=== PATIENT | female | born 1950 | race Caucasian/White ===

== ENCOUNTER 2018-02-07 18:48 | Emergency (ER) | payer MEDICARE, BC ==
--- OUTSIDE RECORDS SUMMARY | 2018-02-07 18:53 | XMS REPORT ---
:1950 External Reference #:[id number] Author Organization [employer] [facility] Address [address] [place] [address] [place] [address] Phone [phone] Care Team Providers Name Role Phone Dann Lobo MD Primary Care Physician Unavailable Payers Type Date Identification Numbers Payment Provider Subscriber Medicare Primary Policy Number: [id number] Medicare Berkley Rudd PayID: [id number] [address] [place] [address] Medigap Part B Expires: 2017 Policy Number: Medicare Berkley Rudd [id number] PayID: [id number] [address] [place] [address] Medigap Part B Effective: 2012 Policy Number: [facility] Berkley Rudd [id number] PayID: [id number] [address] [address] [place] [address] Medigap Part B Effective: 2010 Policy Number: BS [facility] Berkley Rudd [id number] Expires: 2012 PayID: [id number] [address] [address] [place] [address] Problems Date Description Provider Status Onset: 12/26/2017 Acquired genu varum Dary Andrade M.D. Active Onset: 12/26/2017 Localized, primary osteoarthritis Dary Andrade M.D. Active Onset: 04/12/2016 Paroxysmal supraventricular Adithya Parish M.D., FACC, Active tachycardia FSCAI Onset: 10/22/2014 Chest pain Simeon Lim M.D., Active FACC, FASNC Onset: 10/22/2014 Palpitations Simeon Lim M.D., Active FACC, FASNC Family History Date Family Member(s) Problem(s) Comments General Heart Disease General Diabetes General Stroke General Chronic Obstructive Pulmonary Disease (COPD) Father due to Ischemic bowel () Father Cerebrovascular Accident (CVA) Mother Heart Valve calcification Mother Hypertension Social History Type Date Description Comments Lives With Alone Occupation Retired Cigarette Use Former Cigarette Smoker 03/24-03/22 PPD for 35 years, quit in 2006 Pt denies smoking pipe, cigar, e-cigarettes, or using chewing tobacco. ETOH Use Drinks 1 Alcoholic Beverage Per Day Smoking Patient is a former smoker Recreational Drug Use Denies Drug Use Daily Caffeine Consumes on average 1 cup of regular coffee per day Exercise Type/Frequency Exercises sporadically Allergies, Adverse Reactions, Alerts Date Description Reaction Status Severity Comments 09/25/2013 Latex Urticaria active Adhesives 10/22/2014 Perfumes/Scents N/V and H/A active Moderate Pt reports a sensitivity to scents 12/06/2014 Beta Adrenergic active wheezing Blockers 09/25/2013 NKDA inactive 10/10/2014 Tylenol inactive does not take due to Hep C Medications Medication Date Status Form Strength Qnty SIG Indications Ordering Provider Bupropion HCL 06/24 Active Tablets 300mg 1 by mouth Leno ER (XL) ER 24HR every day Brannon Enrique M.D. Duloxetine HCL 09/[address] 20mg 1 by mouth Part twice a day Corrine valle M.D. Synthroid Active Tablets 137mcg 1 by mouth Unknown /0000 every day Naproxen Active Tablets 375mg One tab by Unknown /0000 mouth twice a day Desloratadine Active Tablets 5mg 1 by mouth Unknown /0000 every day Ambien Active Tablets 10mg 1 by mouth Unknown /0000 every night at bedtime Magnesium Oxide Active Tablets 400mg 1 by mouth bid Unknown -MG Supplement /0000 Hydrocodone/Tyl Active 5-325mg 1 tab by mouth Unknown enol /0000 every 6h as needed Probiotic 00 Active Capsules 1 by mouth Unknown /0000 every day Zantac 75 Active Tablets 75mg one tablet po Unknown /0000 twice a day Breo Ellipta Active Aerosol 200-25mcg take 1 inhaled Unknown /0000 /Inh daily Spiriva Active Aerosol 1.25mcg/A inhale two Unknown Respimat /0000 ct puffs by mouth every day Tylenol Active Tablets 500mg 1 tablet po Unknown /0000 bid Cardizem 12/06 Hx Tablets 60mg 180ta take 60 mg I47.1 Adithya /2014 bs twice a day Trista Parish M.D., 06/25 [facility] Metoprolol 11/18 Hx Tablets 25mg 30tab 1 by mouth 785.1 Simeon Succinate ER /2014 ER 24HR s every day Red Lim 12/20 M.DJena, [facility] Metoprolol 10/22 Hx Tablets 25mg 180ta 1 by mouth 785.1 Simeon Tartrate /2014 bs twice a day Red Lim, 11/18 M.DJena, [facility] Neurontin Hx Capsules 300mg 1 by mouth two Unknown /0000 times a day - and 2 tabs at 04/11 Tramadol HCL Hx Unknown /0000 - 09/25 Tramadol HCL Hx Powder 1 by mouth Unknown /0000 every 6 hours - as needed 09/24 Tramadol HCL Hx Tablets 50mg One tab by Unknown /0000 mouth bid - 04/11 Cyanocobalamin Hx Solution 1000mcg/M 25ml 1.0 cubic Unknown /0000 L centimeters - intramuscular 12/25 once a month /2017 Proair HFA 00 Hx Aerosol 108(90Bas 2 puffs by Unknown /0000 e) mouth every 4 - mcg/Act hours as 12/25 Flovent HFA 0000 Hx Aerosol 110mcg/Ac 2 puffs twice Unknown /0000 t daily prn - 12/25 Ranitidine HCL Hx Capsules 150mg 1 by mouth Unknown /0000 once a day - 01/31 Dulcolax Stool Hx Capsules 100mg twice daily Unknown Softener /0000 - 03/24 Probiotic Hx Capsules 1-250Bill once daily Unknown Formula /0000 ion-mg - 11/20 Vitamin D3 Hx Tablets Unknown Complete /0000 - 12/06 Bupropion HCL 00 Hx Tablets 150mg 1 by mouth Unknown ER (XL) /0000 ER 24HR every day - 06/25 Harvoni 00/ Hx Tablets 90-400mg 1 by mouth Unknown /0000 every day - 06/24 Medications Administered in Office Medication Date Status Form Strength Qnty SIG Indications Ordering Provider Inj, Administered Injection Simeon Moon Regadenoson, 015 Lim, 0.1 MG M.D., FACC, FASNC Technetium TC Administered Injection Fredy S. 99M 015 Glass, DO Tetrofosmin, FACC Per Unit Dose Up To 40 Millicuries Technetium TC Administered Injection Simeon Moon 99M 015 Lim, Tetrofosmin, M.D., FACC, Per Unit Dose FASNC Up To 40 Millicuries Celestone 3 mg Administered Injection Mahsa and 3mg 014 Nick gross M.D. Depomedrol Administered Injection Dirk Andrei, 80MG 013 M.D. Depomedrol Administered Injection Gnosticist 80MG 012 Wu Meier R.P.A.-Alex Synvisc Or Administered Injection Dirk Andrei, Synvisc-One 012 M.D. Injection 1 MG Depomedrol Administered Injection Dirk Andrei, 80MG 011 M.D. Vital Signs Date Vital Result Comment 02/01/2018 Height 62 inches 5'2" Weight 241.00 lb with shoes Heart Rate 66 /min BP Systolic Sitting 134 mmHg Lue lg cuff BP Diastolic Sitting 76 mmHg Lue lg cuff BP Systolic Standing 134 mmHg Lue lg cuff BP Diastolic Standing 80 mmHg Lue lg cuff Respiratory Rate 16 /min BMI (Body Mass Index) 44.1 kg/m2 Ejection Fraction 60-65% date 12/04/14 echo 12/26/2017 Height 62 inches 5'2" Weight 245.00 lb Heart Rate 68 /min BP Systolic 132 mmHg BP Diastolic 60 mmHg BMI (Body Mass Index) 44.8 kg/m2 06/25/2016 Height 61.5 inches 5'1.50" Weight 232.00 lb no shoes Heart Rate 72 /min BP Systolic Sitting 128 mmHg Rue lrg cuff BP Diastolic Sitting 72 mmHg Rue lrg cuff BP Systolic Standing 126 mmHg Rue lrg cuff BP Diastolic Standing 78 mmHg Rue lrg cuff Respiratory Rate 16 /min BMI (Body Mass Index) 43.1 kg/m2 Ejection Fraction 60-65% 12/04/2014-echo 04/12/2016 Height 61.5 inches 5'1.50" Weight 235.00 lb Heart Rate 70 /min 72 BP Systolic Sitting 130 mmHg right arm, large cuff BP Diastolic Sitting 80 mmHg right arm, large cuff BP Systolic Standing 126 mmHg right arm, large cuff BP Diastolic Standing 80 mmHg right arm, large cuff Respiratory Rate 16 /min BMI (Body Mass Index) 43.7 kg/m2 Ejection Fraction 60-65% 12/04/14 01/20/2015 Height 61.5 inches 5'1.50" Weight 225.00 lb w/o shoes Heart Rate 70 /min reg BP Systolic Sitting 134 mmHg Rue, lg cuff BP Diastolic Sitting 86 mmHg Rue, lg cuff BP Systolic Standing 126 mmHg Rue BP Diastolic Standing 90 mmHg Rue Respiratory Rate 18 /min BMI (Body Mass Index) 41.8 kg/m2 Ejection Fraction 60-65% as of 12/04/14 echo 12/06/2014 Height 61.5 inches 5'1.50" Weight 222.00 lb Heart Rate 80 /min BP Systolic Sitting 132 mmHg LA, reg BP Diastolic Sitting 76 mmHg LA, reg BMI (Body Mass Index) 41.3 kg/m2 Ejection Fraction 60%-65% 12/04/14 ECHO 10/22/2014 Height 61.5 inches 5'1.50" Weight 216.50 lb w/o shoes Heart Rate 74 /min reg BP Systolic 112 mmHg Lue, lg cuff BP Diastolic 66 mmHg Lue, lg cuff BP Systolic Sitting 110 mmHg Rue, lg cuff BP Diastolic Sitting 64 mmHg Rue, lg cuff BP Systolic Standing 114 mmHg Rue BP Diastolic Standing 60 mmHg Rue Respiratory Rate 18 /min BMI (Body Mass Index) 40.2 kg/m2 09/25/2013 Height 62 inches 5'2" Weight 190.00 lb Heart Rate 73 /min BP Systolic 98 mmHg BP Diastolic 54 mmHg BMI (Body Mass Index) 34.7 kg/m2 Results Test Date Test Result H/L Range Note Culture And Sensitivity 08/24/2011 M 1 <SEE NOTE> Cytology Non-Student Union Consultant 08/24/2011 Cytology Non Student Union Consultant 2 <SEE NOTE> 1 RUN DATE: 08/27/11 [facility] NMI LIVE PAGE 1 RUN TIME: 1128 Specimen Inquiry RUN USER: INTERFACE Name: BERKLEY RUDD Status: REG REF Re08/24/11 Age/Sex: 60/F Unit#: [id number] Location: [facility] : 48 SPEC #: [id number] COLUMBA: 08/24/11-1499 STATUS: COMP REQ #: [id number] RECD: 08/25/11-[address]: Mao Cardona MD SOURCE: WOUND ENTR: 08/25/11-[address]: Jaimee Sargent MD SPDESC: BREAST,RIG ORDERED: CULT SENS/GS ACT WKST: B 08/27/11 #1 Procedure Result Verified Site > CULTURE SENSITIVITY Final 08/27/11- 1127 ML FINAL: NO GROWTH DAY 2 > GRAM STAIN SMEAR Final 08/26/11- 0757 ML POLYS NONE SMEAR: FEW EPITHELIAL CELLS FEW NUCLEATED CELLS NO ORGANISMS SEEN - [facility] State Permit #[id number] [facility] [employer] [place] [id number] DEPARTMENT OF PATHOLOGY, [facility] Proxeon [place] [address] [facility] Permit #[id number] Bk Rivera M.D. Director Lopez Shanks M.D. Offensive Coordinator 2 --- RUN DATE: 08/27/11 [facility] NMI LIVE PAGE 1 RUN TIME: 849 Specimen Inquiry RUN USER: INTERFACE -- Name: BERKLEY RUDD Dwayne Status: REG REF Re08/24/11 Age/Sex: 60/F Unit#: [id number] Location: [facility] : 48 -- Specimen: [id number] Spec Date:08/24/11-[address]: Mao savage MD Spec Type: CYTOLOGY Received:08/26/11-1012 Copies to: Jaimee Sargent MD SOURCE FINE NEEDLE ASPIRATION Right breast PATIENT INFORMATION ACTUAL COLLECTION DATE: 08/24/11 PATIENT HISTORY: right breast lesion GROSS DESCRIPTION Needle rinse in CytoLyt solution( light serrano colored) for thin layer non-maintenance planning clerk test and cell block. DIAGNOSIS Breast, right, fine needle aspiration: Inflammatory cells and macrophages. No ductal epithelium seen. COMMENT Correlation with clinical and imaging studies with continued follow-up and evaluation are warranted. A cell block was prepared in the evaluation of this specimen. Smears and cell block reveal similar findings. Initial evaluation performed by Neeraj MOBLEY([facility]) 08/26/11 Final Interpretation electronically signed by: LOPEZ SHANKS 08/27/11 0850 -- -- DEPARTMENT OF PATHOLOGY, [address] [place] [address] [facility] Permit #[id number] Bk Rivera M.D. Director Lopez Shanks M.D. Photogeologist Dir alejandra -- Procedures Date CPT Code Description Status 02/01/2018 19091 EKG Tracing & Interpretation Completed 04/12/2016 72321 EKG Tracing & Interpretation Completed 12/05/2014 51990 Holter Monitoring 24 HR New Completed 12/04/2014 05083 ECHO Transthoracic, Real-Time 2D With Doppler And Color Completed Flow 12/04/2014 92837 ECHO Transthoracic, Real-Time 2D With Doppler And Color Completed Flow 12/02/2014 35402 Stress Test Completed 12/02/2014 76223 Myocardial Perfusion Imaging Tomographic (Spect) Completed Multiple Studies 12/02/2014 61326 Myocardial Perfusion Imaging Tomographic (Spect) Completed Multiple Studies 10/22/2014 28200 EKG Tracing & Interpretation Completed 09/25/2013 57356 Inject Tendon Sheath Or Ligament Aponeurosis Eg Plantar Completed Fascia 09/25/2013 22270 Rad Exam; Hand Comp Completed 09/27/2012 78591 Xray Knee 3 Views Completed 09/27/2012 81388 Rad Exam; Knee, Ap&L Completed 09/27/2012 54525 Inject/Drain Joint/Bursa Major W/O US Completed 03/27/2012 23738 Polysomnography Sleep Staging 4+ Parameters Completed 10/06/201198487 Inject/Drain Joint/Bursa Major W/O US Completed 05/03/201155362 Inject/Drain Joint/Bursa Major W/O US Completed 03/01/2011 38869 Xray Knee 3 Views Completed 03/01/2011 50684 Rad Exam; Knee, Ap&L Completed 03/01/201130840 Inject/Drain Joint/Bursa Major W/O US Completed Encounters Type Date Location Provider CPT E/M Dx Office Visit 12/26/2017 [facility] Dary Andrade M.D. 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 786.50 Office Visit 09/25/2013 9:00a [facility] Mahsa Lopez, 91839 727.04 Of [facility] Valerio 715.94 Office Visit 09/27/2012 9:30a [facility] Ismael Forbes M.D. 33300 716.96 C.M.A. 719.46 715.96 Office Visit 04/14/2012 3:03p Sanna Isidro, 35340 327.23 Disorder Center MMarita Office Visit 02/25/2012 9:12a [facility] Daniel Isidro, 50370 786.09 Disorder Center MMarita 307.42 Office Visit 10/06/2011 8:15a [facility] [place] 57035 716.96 Of C.MBoni Garcia 719.46 715.96 Office Visit 05/03/2011 11:00a [facility] Ismael Forbes M.D. 18089 715.96 C.M.A. 716.96 716.96 715.96 Office Visit 04/21/2011 2:00p [facility] Ismael Forbes M.D. 48902 716.96 C.M.A. Office Visit 03/01/2011 10:15a [facility] Ismael Forbes M.D. 45697 716.96 C.M.A. 715.96 Plan of Care Future Appointment(s):02/28/2018 11:30 am - Dary Andrade M.D. at [facility] [place]02/15/2018 9:30 am - Dary Andrade M.D. at [facility]02/01/2018 - [facility] Enrique M.D.I47.1 Supraventricular tachycardiaFollow up:As yfhxwkC96.810 Encounter for preprocedural cardiovascular examination
[2018-02-07 19:03] VITALS: BP 135/61
[2018-02-07] MEDS ORDERED: predniSONE TAB* 20 MG PO ONE (19:18)
--- NOTE | 2018-02-07 19:18 | UC ---
Respiratory Complaint HPI - HPI Summary HPI Summary: The patient is a 67-year-old female with a one-week history of cough. She has point tenderness along the right upper sternal border when she coughs. Other than that one area pain she denies any chest pain. She denies shortness of breath. She has had a mild sore throat and swollen anterior cervical nodes. She denies any fever or chills. - History of Current Complaint Chief Complaint: UCRespiratory Stated Complaint: COUGH Time Seen by Provider: 02/07/18 19:05 Hx Obtained From: Patient Onset/Duration: Gradual Onset, Lasting Days Timing: Constant Severity Initially: Mild Severity Currently: Moderate Pain Intensity: 4 Pain Scale Used: 0-10 Numeric Character: Cough: Nonproductive Aggravating Factors: Deep Breaths Alleviating Factors: Bronchodilator Associated Signs And Symptoms: Positive: Nasal Congestion - Allergies/Home Medications Allergies/Adverse Reactions: Allergies Allergy/AdvReac Type Severity Reaction Status Date / Time Adhesive Tape AdvReac See Comment Verified 02/07/18 19:04 Chemicals AdvReac See Comment Uncoded 02/07/18 19:04 Home Medications: Home Medications Fluticasone/Vilanterol [Breo Ellipta 200-25 Mcg INH] 02/07/18 [History Confirmed 02/07/18] Tiotropium CAP.INH* [Spiriva CAP.INH*] 2 cap.inh INH DAILY 02/07/18 [History Confirmed 02/07/18] PMH/Surg Hx/FS Hx/Imm Hx Previously Healthy: Yes Endocrine History: Hypothyroidism Respiratory History: Asthma, Bronchitis GI/ History: Gastroesophageal Reflux Psychological History: Depression - Surgical History Surgical History: Yes Surgery Procedure, Year, and Place: 1969 - . 1969- partial thyroidectomy. 1980 C- Section. 1982 - lumpectomy (benign). 07/[address] [facility] - lap cholecystectomy. 2012 L total knee replacement. breast reduction 02/2010. 03/[address] [facility] - esophageal & duodenal bioposy - Social History Alcohol Use: None Alcohol Amount: 2-3 drinks a week Substance Use Type: None Substance Use Comment - Amount & Last Used: ambien and tramadol Smoking Status (MU): Former Smoker Type: Cigarettes Have You Smoked in the Last Year: No When Did the Patient Quit Smoking/Using Tobacco: 2008 - Immunization History Most Recent Influenza Vaccination: Nov 2012 Most Recent Tetanus Shot: up to date per patient Most Recent Pneumonia Vaccination: none Review of Systems All Other Systems Reviewed And Are Negative: Yes Constitutional: Positive: Fatigue Skin: Positive: Negative Eyes: Positive: Negative ENT: Positive: Sore Throat Respiratory: Positive: Cough Cardiovascular: Positive: Chest Pain Gastrointestinal: Positive: Negative Genitourinary: Positive: Negative Motor: Positive: Negative Neurovascular: Positive: Negative Musculoskeletal: Positive: Negative Neurological: Positive: Negative Psychological: Positive: Negative Physical Exam Triage Information Reviewed: Yes Appearance: Well-Appearing, No Pain Distress, Well-Nourished Vital Signs: Initial Vital Signs Temp 98.2 F 02/07/18 18:57 Pulse 70 02/07/18 18:57 Resp 18 02/07/18 18:57 BP 135/61 02/07/18 18:57 Pulse Ox 94 02/07/18 18:57 Vital Signs Reviewed: Yes Eyes: Positive: Conjunctiva Clear ENT: Positive: Hearing grossly normal, Uvula midline. Negative: Nasal congestion, Nasal drainage, Trismus, Muffled voice, Hoarse voice, Dental tenderness, Sinus tenderness Neck: Positive: Supple, Nontender, Enlarged Nodes @ - small tender ant cerv nodes Respiratory: Positive: Lungs clear, Normal breath sounds, No respiratory distress. Negative: Chest non-tender Cardiovascular: Positive: RRR. Negative: Tachycardia, Bradycardia Musculoskeletal: Positive: ROM Intact, No Edema Neurological: Positive: Alert Psychological Exam: Normal UC Diagnostic Evaluation - Laboratory O2 Sat by Pulse Oximetry: 94 - low normal/not hypoxic Respiratory Course/Dx - Differential Dx/Diagnosis Provider Diagnoses: Acute bronchitis. chest wall pain Discharge - Sign-Out/Discharge Documenting (check all that apply): Patient Departure All imaging exams completed and their final reports reviewed: No Studies - Discharge Plan Condition: Stable Disposition: HOME Prescriptions: predniSONE [Deltasone 20 MG TAB] 40 mg PO DAILY #8 tab Patient Education Materials: Acute Bronchitis (ED) Referrals: Dann Lobo MD [Primary Care Provider] - 1 Week (if not completely better) Additional Instructions: continue to use your inhalers as directed plain mucinex or robitussin recheck for new or worsening symptoms - Billing Disposition and Condition Condition: STABLE Disposition: Home Images Front/Back of Body, Lg ([place]): [address] [place] [address]
== END 2018-02-07 19:33 | disposition home or self-care (01) ==
LOC: UCEAST 18:48
DX: J20.9 Acute bronchitis, unspecified (principal); R07.89 Other chest pain; J45.909 Unspecified asthma, uncomplicated; Z91.048 Other nonmedicinal substance allergy status; Z87.891 Personal history of nicotine dependence
CPT/HCPCS: 99212; G0463; J7512

== ENCOUNTER 2018-02-28 08:16 | Inpatient (IN) | payer MEDICARE, BC ==
--- NOTE | 2018-02-15 22:29 | HP ---
HISTORY AND PHYSICAL: DATE OF ADMISSION/SURGERY: 02/28/18 DATE OF OFFICE VISIT: 02/15/18 SURGEON: Dary Andrade MD * (DICTATED BY BROOK COLEMAN) PRIMARY CARE PHYSICIAN: Dann Lobo MD PROCEDURE: Right total knee arthroplasty. CHIEF COMPLAINT: Right knee pain. HISTORY OF PRESENT ILLNESS: Ms. Rudd is a 67-year-old female with end-stage osteoarthritis of the right knee. She has failed conservative treatment and elected to proceed with a right total knee arthroplasty. PAST MEDICAL HISTORY: 1. Hypothyroidism. 2. GERD. 3. Asthma. 4. High cholesterol. 5. Depression. 6. Anxiety. 7. Hepatitis C. 8. Sleep apnea. PAST SURGICAL HISTORY: 1. Partial thyroidectomy. 2. . 3. Cholecystectomy. 4. Breast reduction. 5. Left total knee arthroplasty. CURRENT MEDICATIONS: 1. Wellbutrin 300 mg daily. 2. Duloxetine 20 mg twice a day. 3. Levothyroxine 137 mcg daily. 4. Naproxen 375 mg twice a day. 5. Desloratadine 5 mg daily. 6. Ambien 10 mg q.h.s. 7. Ranitidine 150 mg daily. 8. Magnesium oxide twice a day. 9. Zantac twice a day. 10. Breo Ellipta inhaler. 11. Spiriva. 12. Tylenol as needed. ALLERGIES: To ADHESIVES. FAMILY HISTORY: Coronary artery disease, COPD, and stroke. SOCIAL HISTORY: She is a 67-year-old female. She lives alone. She does not smoke or use drugs. Uses occasional alcohol. REVIEW OF SYSTEMS: A complete 14-point review of systems was reviewed with the patient. It is positive for GERD, hypothyroidism, and hepatitis C infection, which was treated approximately 1 year ago. She denies history of DVT, PE, HIV , MRSA, or anesthesia problems. PHYSICAL EXAMINATION GENERAL: She is well developed, well nourished, in no acute distress. VITAL SIGNS: She stands 62 inches tall, weighs 245 pounds. Her blood pressure 124/76 and her heart rate is 68. HEENT: Normocephalic, atraumatic. NECK: Supple. No palpable lymph nodes. PULMONARY: The lungs are clear to auscultation bilaterally. CARDIO: Regular rate and rhythm. Strong S1, S2. ABDOMEN: Soft, nontender, nondistended. NEUROLOGICAL: She is alert and oriented x3. MUSCULOSKELETAL: Right lower extremity, the skin is intact. There are no open wounds or abrasions. She has a moderate joint effusion. She has some tenderness over the medial and lateral joint line. Range of motion is 10 to 120 degrees of flexion. She has 2+ dorsalis pedis pulse. Intact sensation. Her lower extremity muscle group strengths are intact at 5/5. ASSESSMENT AND PLAN: Ms. Rudd is a 67-year-old female with end-stage osteoarthritis of the right knee. She has failed conservative treatment and elected to proceed with a right total knee arthroplasty, which is scheduled for 02/28/[address] Andrade discussed the risks and benefits of the surgery at today's visit and all of her questions were answered. She will follow with Dr. Andrade 2 weeks after the surgery. BROOK COLEMAN [id number]/[facility] #: [id number] [facility]
[~2018-02-28 08:16] MED LIST: Buffered Lidocaine 0.9% SYRIN* 5 ML/SYR SYRINGE INTRADERM ONE; Lactated Ringers 1000 ML Bag* 1,000 ML IV SCH; Tranexamic Acid 1,000 MG in NS 0.9% 50 ML* (outpatient use) IV SCH
--- OUTSIDE RECORDS SUMMARY | 2018-02-28 08:21 | XMS REPORT | Continuity of Care Document ---
:1950 External Reference #:[id number] Author Name Frida Garcia Care Team Providers Name Role Phone Dann Lobo MD Primary Care Physician Unavailable Payers Type Date Identification Numbers Payment Provider Subscriber Policy Number: [id number] Medicare Berkley Rudd PayID: [id number] [address] [place] [address] Expires: 2017 Policy Number: [id number] Medicare Berkley Rudd PayID: [id number] [address] [place] [address] Effective: 2012 Policy Number: [id number] BS [employer]ets Berkley Rudd PayID: [id number] [address] [address] [place] [address] Effective: 2010 Policy Number: [id number] BS Of [place] Berkley Rudd Expires: 2012 PayID: [id number] [address] [address] [place] [address] Advance Directives Description No Information Available Problems Date Description Provider Status Onset: 12/26/2017 [...] Hypertension Social History Type Date Description Comments Sex Unknown Lives With Alone Occupation Retired Tobacco Use Start: Unknown End: Former Cigarette Smoker 03/24-03/22 PPD for 35 Unknown years, quit in 2006 Pt denies smoking pipe, cigar, e-cigarettes, or using chewing tobacco. Smoking Status Reviewed: 02/15/18 Former Cigarette Smoker 03/24-03/22 PPD for 35 years, quit in 2006 Pt denies smoking pipe, cigar, e-cigarettes, or using chewing tobacco. ETOH Use Drinks 1 Alcoholic Beverage Per Day Tobacco Use Start: Unknown End: Patient is a former Unknown smoker Recreational Drug Use Denies Drug Use Exercise Type/Frequency Exercises sporadically Allergies, Adverse Reactions, Alerts Date Description Reaction Status Severity Comments 09/25/2013 Latex Urticaria Active Adhesives 10/22/2014 Perfumes/Scents N/V and H/A Active Moderate Pt reports a sensitivity to scents 12/06/2014 Beta Adrenergic Active wheezing Blockers 09/25/2013 NKDA Inactive 10/10/2014 Tylenol Inactive does not take due to Hep C Medications Medication Date Status Form Strength Qnty SIG Indications Ordering Provider Bupropion HCL 06/24 Active Tablets 300mg 1 by mouth [place]eno ER (XL) /2016 ER 24HR every day Brannon Enrique M.D. [...] by mouth bid Unknown -MG Supplement /0000 Probiotic Active Capsules 1 by mouth Unknown /0000 [...] twice a day Trista Parish M.D., 06/25 [facility], [facility] Metoprolol 11/18 Hx Tablets 25mg 30tab 1 by mouth 785.1 Simeon Succinate ER /2014 ER 24HR s every day Red Lim 12/20 Teod[place], [facility], [facility] Metoprolol 10/22 Hx Tablets 25mg 180ta 1 by mouth 785.1 Simeon Tartrate /2014 bs twice a day Red Lim, 11/18 Teodoro, [facility], [facility] Neurontin Hx Capsules 300mg 1 by [...] - mcg/Act hours as 12/25 Flovent HFA 00 Hx Aerosol 110mcg/Ac 2 puffs twice Unknown /0000 t daily prn - 12/25 Ranitidine HCL Hx Capsules 150mg 1 by mouth Unknown /0000 once a day - 01/31 Dulcolax Stool 00 Hx Capsules 100mg twice daily Unknown Softener /0000 - 03/24 Probiotic 0000 Hx Capsules 1-250Bill once daily Unknown Formula /0000 ion-mg - 11/20 Vitamin D3 00/00 Hx Tablets Unknown Complete /0000 - 12/06 Hydrocodone/Tyl 00 Hx 5-325mg 1 tab by mouth Unknown enol /0000 every 6h as - needed 02/14 Bupropion HCL Hx Tablets 150mg 1 by mouth Unknown ER (XL) /0000 ER 24HR every day - 06/25 Harvoni 00 Hx Tablets 90-400mg 1 by mouth Unknown /0000 every day - 06/24 Medications Administered in Office Medication Date Status Form Strength Qnty SIG Indications Ordering Provider Inj, Administered Injection Simeon Red Regadenoson, 015 Lim, 0.1 MG M.D., FACC, FASNC Technetium TC Administered Injection Fredy S. 99M 015 Glass, DO Tetrofosmin, FACC Per Unit Dose Up To 40 Millicuries Technetium TC Administered Injection Simeon Moon 99M 015 Lim, Tetrofosmin, M.D., FACC, Per Unit Dose FASNC Up To 40 Millicuries Celestone 3 mg Administered Injection Mahsa and 3mg 014 Nick gSage. Depomedrol Administered Injection Dirk Andrei, 80MG 013 M.D. Depomedrol Administered Injection Orthodoxy 80MG 012 H. Armando Meier.P.A.-C Synvisc Or Administered Injection Dirk Andrei, Synvisc-One 012 M.D. Injection 1 MG Depomedrol Administered Injection Dirk Andrei, 80MG 011 M.D. Immunizations Description No Information Available Vital Signs Date Vital Result Comment 02/15/2018 9:30am Height 62 inches 5'2" Weight 237.00 lb BP Systolic 124 mmHg BP Diastolic 76 mmHg Respiratory Rate 16 /min Pain Level 5 BMI (Body Mass Index) 43.3 kg/m2 02/01/2018 2:53pm Height 62 inches 5'2" Weight 241.00 lb with shoes Heart Rate 66 /min BP Systolic Sitting 134 mmHg Lue lg cuff BP Diastolic Sitting 76 mmHg Lue lg cuff BP Systolic Standing 134 mmHg Lue lg cuff BP Diastolic Standing 80 mmHg Lue lg cuff Respiratory Rate 16 /min BMI (Body Mass Index) 44.1 kg/m2 Ejection Fraction 60-65% date 12/04/14 echo 12/26/2017 3:33pm Height 62 inches 5'2" Weight 245.00 lb Heart Rate 68 /min BP Systolic 132 mmHg BP Diastolic 60 mmHg BMI (Body Mass Index) 44.8 kg/m2 06/25/2016 3:15pm Height 61.5 inches 5'1.50" Weight 232.00 lb no shoes Heart Rate 72 /min BP Systolic Sitting 128 mmHg Rue lrg cuff BP Diastolic Sitting 72 mmHg Rue lrg cuff BP Systolic Standing 126 mmHg Rue lrg cuff BP Diastolic Standing 78 mmHg Rue lrg cuff Respiratory Rate 16 /min BMI (Body Mass Index) 43.1 kg/m2 Ejection Fraction 60-65% 12/04/2014-echo 04/12/2016 2:47pm Height 61.5 inches 5'1.50" Weight 235.00 lb Heart Rate 70 /min 72 BP Systolic Sitting 130 mmHg right arm, large cuff BP Diastolic Sitting 80 mmHg right arm, large cuff BP Systolic Standing 126 mmHg right arm, large cuff BP Diastolic Standing 80 mmHg right arm, large cuff Respiratory Rate 16 /min BMI (Body Mass Index) 43.7 kg/m2 Ejection Fraction 60-65% 12/04/14 01/20/2015 10:33am Height 61.5 inches 5'1.50" Weight 225.00 lb w/o shoes Heart Rate 70 /min reg BP Systolic Sitting 134 mmHg Rue, lg cuff BP Diastolic Sitting 86 mmHg Rue, lg cuff BP Systolic Standing 126 mmHg Rue BP Diastolic Standing 90 mmHg Rue Respiratory Rate 18 /min BMI (Body Mass Index) 41.8 kg/m2 Ejection Fraction 60-65% as of 12/04/14 echo 12/06/2014 11:40am Height 61.5 inches 5'1.50" Weight 222.00 lb Heart Rate 80 /min BP Systolic Sitting 132 mmHg LA, reg BP Diastolic Sitting 76 mmHg LA, reg BMI (Body Mass Index) 41.3 kg/m2 Ejection Fraction 60%-65% 12/04/14 ECHO 10/22/2014 1:42pm Height 61.5 inches 5'1.50" Weight 216.50 lb [...] BMI (Body Mass Index) 40.2 kg/m2 09/25/2013 10:43am Height 62 inches 5'2" Weight 190.00 lb Heart Rate 73 /min BP Systolic 98 mmHg BP Diastolic 54 mmHg BMI (Body Mass Index) 34.7 kg/m2 Results Test Date Facility Test Result H/L Range Note Culture And 08/24/2011 [facility] M [address] ---- <[place] [address] NOTE> [phone] Cytology Non-Sexton Helper 08/24/2011 [facility] Cytology Non - [address] [place] ---- <[place] [address] NOTE> [phone] RUN DATE: 08/27/11 [facility] NMI LIVE PAGE 1 RUN TIME: 1128 Specimen Inquiry RUN USER: INTERFACE Name: RAJNI RUDDKennedy Rice Status: REG REF Re08/24/11 Age/Sex: 60/F Unit#: [id number] Location: [facility] : 48 SPEC #: [id number] [place]: 08/24/11 STATUS: AIDAN REQ #: [id number] RECD: 08/25/11-1529 [facility] DR: Mao Cardona MD SOURCE: WOUND ENTR: 08/25/[address]: Jaimee Sargent MD SPDESC: BREAST,RIG ORDERED: CULT SENS/GS ACT WKST: B 08/27/11 #1 Procedure Result Verified Site > CULTURE SENSITIVITY Final 08/27/11- 1127 ML FINAL: NO GROWTH DAY 2 > GRAM STAIN SMEAR Final 08/26/11- 0757 ML POLYS NONE SMEAR: FEW EPITHELIAL CELLS FEW NUCLEATED CELLS NO ORGANISMS SEEN ML - [facility] State Permit #[id number] [address] [place] [address] DEPARTMENT OF PATHOLOGY, [address] [place] [address] [facility] Permit #[id number] Teodoro Crowley M.D. [place] Carpenter 2 --- RUN DATE: 08/27/11 [facility] NMI LIVE PAGE 1 RUN TIME: 0850 Specimen Inquiry RUN USER: INTERFACE -- Name: BERKLEY RUDD Accreece#: [id number] Status: REG REF Re08/24/11 Age/Sex: 60/F Unit#: [id number] Location: [facility]. : 48 -- Specimen: [id number] [id number] Spec Date:08/24/11-[address]: Mao savage MD Spec Type: CYTOLOGY Received:08/26/11-1012 Copies to: Jaimee Sargent MD SOURCE FINE NEEDLE ASPIRATION Right breast PATIENT INFORMATION ACTUAL COLLECTION DATE: 08/24/11 PATIENT HISTORY: right breast lesion GROSS DESCRIPTION Needle rinse in CytoLyt solution( light serrano colored) for thin layer non-ob/gyn nurse test and cell block. DIAGNOSIS Breast, right, fine needle aspiration: Inflammatory cells and macrophages. No ductal epithelium seen. COMMENT Correlation with clinical and imaging studies with continued follow-up and evaluation are warranted. A cell block was prepared in the evaluation of this specimen. Smears and cell block reveal similar findings. Initial evaluation performed by Neeraj MOBLEY([facility]) 08/26/11 Final Interpretation electronically signed by: LOPEZ SHANKS 08/27/11 0850 -- -- DEPARTMENT OF PATHOLOGY, [address] [place] [address], [place] [address] [facility] Permit #[id number] Bk Rivera M.D. Director Lopez Shanks M.D. Trading Manager Dir alejandra -- Procedures Date Code Description Status 02/01/2018 53905 EKG Tracing & Interpretation Completed 04/12/2016 59864 EKG Tracing & Interpretation Completed 12/05/2014 79426 Holter Monitoring 24 HR New Completed 12/04/2014 97760 ECHO Transthoracic, Real-Time 2D With Doppler And Color Completed Flow 12/04/2014 43267 ECHO Transthoracic, Real-Time 2D With Doppler And Color Completed Flow 12/02/2014 01516 Stress Test Completed 12/02/2014 54488 Myocardial Perfusion Imaging Tomographic (Spect) Multiple Completed Studies 12/02/2014 90777 Myocardial Perfusion Imaging Tomographic (Spect) Multiple Completed Studies 10/22/2014 24802 EKG Tracing & Interpretation Completed 09/25/2013 51718 Inject Tendon Sheath Or Ligament Aponeurosis Eg Plantar Completed Fascia 09/25/2013 93137 Rad Exam; Hand Comp Completed 09/27/2012 67909 Xray Knee 3 Views Completed 09/27/2012 47259 Rad Exam; Knee, Ap&L Completed 09/27/201216478 Inject/Drain Joint/Bursa Major W/O US Completed 03/27/2012 96281 Polysomnography Sleep Staging 4+ Parameters Completed 10/06/201105414 Inject/Drain Joint/Bursa Major W/O US Completed 05/03/2011 Inject/Drain Joint/Bursa Major W/O US Completed 03/01/2011 22855 Xray Knee 3 Views Completed 03/01/2011 49997 Rad Exam; Knee, Ap&L Completed 03/01/2011 Inject/Drain Joint/Bursa Major W/O US Completed Encounters Type Date Location Provider Dx Diagnosis Office Visit 02/01/2018 [facility] [place] I47.1 Supraventricular 2:45p Of Goyo Enrique M.D. tachycardia Z01.810 Encounter for preprocedural cardiovascular examination M17.11 Unilateral primary osteoarthritis, right knee Office Visit 12/26/2017 3:00p [facility] Dary Andrade, M25.561 Pain in right Of C.MScar Valerio knee M25.461 Effusion, right knee M17.11 Unilateral primary osteoarthritis, right knee M21.161 Varus deformity, not elsewhere classified, right knee Office Visit 06/25/2016 [place] I47.1 Supraventricular 3:30p Cardiology Of [place] Enrique tachycardia Content Engineer R00.2 Palpitations Office Visit 04/12/2016 [place] I47.1 Supraventricular 3:00p Cardiology Of MADELAINE Valerio, tachycardia Content Engineer AT [facility] Office Visit 01/20/2015 [place] R00.2 Palpitations 10:45a Cardiology Of [place] Lim, Content Engineer FACC, FASNC Office Visit 12/06/2014 [place] Simeon Moon 785.1 Palpitations 11:30a Cardiology [place] Lim, FACC, FASNC Office Visit 10/22/2014 [place] 785.1 Palpitations 2:00p Cardiology Reed Lim M.D., [facility] FACC, FASNC 786.50 Pain Chest Unspec Office Visit 09/25/2013 Orthopedic Mahsa 727.04 Tenosynovitis 9:00a Services Of [place] Lopez Radial Styloid [facility] 715.94 Osteoarthrosis Unspec Genlzd Or Localized Hand Office Visit 09/27/2012 9:30a Orthopedic Ismael Forbes 716.96 Arthropathy Unspec Services Of [facility] Lower Leg [facility] 719.46 Pain Joint Lower Leg 715.96 Osteoarthrosis Unspec Genlzd Or Localized Lower Leg Office Visit 04/14/2012 3:03p Sanna Sanchez 327.23 Obstructive Sleep Disorder [facility] Office Visit 02/25/2012 9:12a Sanna Sleep Daniel 786.09 Dyspnea & Disorder [facility] Abnormalities Other 307.42 Sleep Disorder Persistent Initiating Or Maintaining Sleep Office Visit 10/06/2011 Orthopedic Oz [place] 716.96 Arthropathy 8:15a Services Of [place] Unspec Lower Leg C.M.AJena Plata 719.46 Pain Joint Lower Leg 715.96 Osteoarthrosis Unspec Genlzd Or Localized Lower Leg Office Visit 05/03/2011 11:00a Orthopedic Ismael Forbes 715.96 Osteoarthrosis Services Of [place] Unspec Genlzd Or [facility]. Localized Lower Leg 716.96 Arthropathy Unspec Lower Leg 716.96 Arthropathy Unspec Lower Leg 715.96 Osteoarthrosis Unspec Genlzd Or Localized Lower Leg Office Visit 04/21/2011 2:00p Orthopedic Ismael Forbes 716.96 Arthropathy Unspec Services Of [facility] Lower Leg [facility] Office Visit 03/01/2011 10:15a Orthopedic Ismael Forbes 716.96 Arthropathy Unspec Services Of [facility] Lower Leg [facility]. 715.96 Osteoarthrosis Unspec Genlzd Or Localized Lower Leg Plan of Treatment Future Appointment(s):02/28/2018 11:30 am - David Pineda PA-C at [facility]02/28/2018 11:30 am - BROOK Teague at [facility]02/28/2018 11:30 am - Dary Andrade M.D. at [facility]02/15/2018 - Dary Andrade M.D.M25.561 Pain in right kneeFollow up:Follow up: 2 weeks after uvxlrodJ19.461 Effusion, right kneeM17.11 Unilateral primary osteoarthritis, right kneeM21.161 Varus deformity , not elsewhere classified, right knee
[2018-02-28] MEDS ORDERED: ceFAZolin 2 GM PREMIX in ORs 2 GM/50 ML BAG IVPB ONE (08:57)
[2018-02-28] MEDS ORDERED: Midazolam* 1 MG/ML 5 ML VIAL (5 MG) ONE (10:21)
[2018-02-28] MEDS ORDERED: fentaNYL* 50 MCG/ML 2 ML VIAL (100 MCG VIAL) ONE ×2 (10:21→14:11)
[2018-02-28] MEDS ORDERED: Bupivacaine 0.5% SDV PF* 30ML VIAL ONE (10:50)
[2018-02-28] MEDS ORDERED: ROPIVACAINE 5 MG/ML 30 ML BTL (0.5%) ONE (10:55)
[2018-02-28] MEDS ORDERED: Bupivacaine 0.5% PF 10 ML VIAL INJ ONE (11:19)
[2018-02-28] MEDS ORDERED: Propofol* 10 MG/ML 20 ML BTL ONE ×2 (11:54)
[2018-02-28] MEDS ORDERED: Ondansetron INJ* 2 MG/ML VIAL ONE (11:54)
[2018-02-28] MEDS ORDERED: Phenylephrine INJ* 10 MG/ML 1 ML VIAL (10 MG) ONE (11:54)
[2018-02-28] MEDS ORDERED: Ibuprofen TAB* 600 MG PO PRN (12:54)
[2018-02-28] MEDS ORDERED: Acetaminophen TAB* 325 MG PO PRN (12:54)
[2018-02-28] MEDS ORDERED: Naloxone* 0.4 MG/ML 1 ML VIAL IV PRN (12:54)
[2018-02-28] MEDS ORDERED: Ondansetron TAB* 4 MG PO PRN (14:04)
[2018-02-28] MEDS ORDERED: Cyclobenzaprine TAB* 10 MG PO PRN (14:04)
[2018-02-28] MEDS ORDERED: diPHENhydraMINE IV* 50 MG/ML 1 ml VIAL (BENADRYL) IV PRN (14:04)
[2018-02-28] MEDS ORDERED: Polyethylene Glycol 3350* 17 GM PACKET PO PRN (14:04)
[2018-02-28] MEDS ORDERED: Ondansetron INJ* 2 MG/ML VIAL IV PRN (14:04)
[2018-02-28] MEDS ORDERED: Magnesium Hydroxide LIQ* 30 ML UDC PO PRN (14:04)
[2018-02-28] MEDS ORDERED: Bisacodyl SUPP* 10 MG SUPP PR PRN (14:04)
[2018-02-28] MEDS ORDERED: oxyCODONE/Acetamin 5/325 MG* TAB PO PRN (14:04)
[2018-02-28] MEDS: fentaNYL* 50 MCG/ML 2 ML VIAL (100 MCG VIAL) IV PRN ×4 (14:12→14:54)
[2018-02-28] MEDS ORDERED: Albuterol HFA INHALER* 8 gm MDI INH PRN (14:12)
--- NOTE | 2018-02-28 15:21 | PN ---
Progress Note - Progress Note Date of Service: 02/28/18 Note: resting comfortably in recovery room. pain well controlled. dressing c/d/i. able to dorsi flex/plantar flex, 2+DP pulse and intact sensation
[2018-02-28] MEDS: HYDROmorphone INJ1* 1 MG/ML SYRINGE IV PRN ×3 (15:33→15:55)
[2018-02-28] MEDS ORDERED: HYDROmorphone INJ1* 1 MG/ML SYRINGE ONE (15:33)
[2018-02-28] MEDS ORDERED: oxyCODONE/Acetamin 5/325 MG* TAB ONE (15:51)
[2018-02-28] MEDS: oxyCODONE/Acetamin 5/325 MG* TAB PO PRN ×3 (15:52→20:06)
[2018-02-28] MEDS: Lactated Ringers 1000 ML Bag* 1,000 ML IV SCH (16:36)
[2018-02-28] MEDS ORDERED: oxyCODONE TAB* 5 MG TAB ONE (17:29)
[2018-02-28] MEDS: Acetaminophen TAB* 325 MG PO SCH ×2 (18:15→23:50)
[2018-02-28] MEDS: ceFAZolin 1 GM in Dextrose (*) 1 GM/50 ML BAG IVPB SCH (20:03)
[2018-02-28] MEDS: Docusate CAP* 100 MG PO SCH (20:07)
[2018-02-28] MEDS: DULoxetine DR CAP* 20 MG CAP.DR PO SCH (20:07)
[2018-02-28] MEDS: Famotidine TAB* 20 MG PO SCH (20:07)
[2018-02-28] MEDS: Magnesium Hydroxide LIQ* 30 ML UDC PO SCH (20:08)
[2018-02-28] MEDS: traMADol TAB* 50 MG PO PRN (21:52)
[2018-02-28] MEDS: oxyCODONE TAB* 5 MG TAB PO PRN (21:52)
[2018-02-28] MEDS: Morphine VIAL* 4 MG/ML VIAL (1 ml vial) IV PRN (23:51)
[2018-03-01] MEDS: oxyCODONE/Acetamin 5/325 MG* TAB PO PRN ×5 (00:18→20:49)
--- NOTE | 2018-03-01 01:59 | OP ---
DATE OF OPERATION: 02/28/18 - ROOM #348 DATE OF : 46 ATTENDING SURGEON: Dary Andrade MD PLASTIC MOULD MAKER: BROOK Oconnell. Ms. Bradley did help throughout the procedure with preparation of the leg, wound retraction, manipulation of the knee, and wound closure. ANESTHESIOLOGIST: Dr. Lancaster. ANESTHESIA: Spinal. PRE-OP DIAGNOSIS: Severe end-stage degenerative osteoarthritis of the right knee joint. POST-OP DIAGNOSIS: Severe end-stage degenerative osteoarthritis of the right knee joint. OPERATIVE PROCEDURE: Right total knee arthroplasty. TOURNIQUET TIME: 53 minutes. COMPLICATIONS: None. SPECIMEN: Bone and cartilage from the right knee joint sent to Pathology. HARDWARE USED: This is cemented Hernandez and Nephew total knee arthroplasty hardware. Two packages of Simplex bone cement. For the femur, a right Legion posterior stabilized 5 narrow femoral component. For the tibia, a size 3 Dulce II right tibial base plate. For the insert, a 9-mm posterior stabilized insert, size 3-4. For the patella, a 32-mm 3-peg all poly patella with 7.5 thickness. BRIEF HISTORY/INDICATION: Ms. Rudd is a 67-year-old female with years of increasingly severe right knee pain. She failed conservative treatment with antiinflammatories, pain medication, intraarticular injections, and physical therapy. Due to continued pain and decreased quality of life, she elected to undergo a right total knee arthroplasty. Radiographs showed end-stage arthritis. Informed consent was obtained from the patient. She understood the risks of surgery included but were not limited to bleeding, infection, damage to nearby structures, continued pain, need for further surgery, intraoperative fracture, nerve palsy, hardware failure or loosening, knee stiffness, loss of motion, stroke, heart attack, blood clot, and . She wished to proceed. INTRAOPERATIVE FINDINGS: Intraoperatively, the patient was noted to have severe end-stage arthritis with complete loss of cartilage in all 3 compartments. She had extensive osteophyte formation. DESCRIPTION OF PROCEDURE: Ms. Rudd was identified in the preanesthesia unit. Her right lower extremity was marked as the correct operative site. Informed consent was signed and placed in the chart. The patient was taken to the operating room and placed under spinal anesthesia. Villatoro catheter was placed. Tourniquet was placed on the right thigh. Right lower extremity was prepped and draped in the usual sterile fashion. Preop time-out was made to correctly identify the patient, side, and site. Appropriate perioperative antibiotics were given within 1 hour of incision. Tourniquet was inflated and total tourniquet time for this procedure was 53 minutes. A midline incision was made with a 10-blade. Next, a new 10-blade was used to make a standard medial parapatellar arthrotomy. Patella was subluxed laterally. Electrocautery was used to subperiosteally elevate the soft tissue off the superomedial tibia to the mid sagittal plane. The knee was flexed up. The anterior horn of the lateral meniscus and ACL were sharply released. A drill was used to enter the distal femur. Intramedullary distal femoral cutting guide was pinned on the distal femur. Oscillating saw was used to make the distal femoral cut. Next, the external rotation guide was pinned on the distal femur. Distal femur was sized to a size 5. Size 5 multi-cutting jig was pinned on the distal femur. Oscillating saw was used to make the appropriate 4-chamfer cuts. The PCL was completely released and the tibia was subluxed anteriorly. Extramedullary tibial cutting guide was pinned on the proximal tibia. Oscillating saw was used to make the proximal tibial cut perpendicular to the mechanical axis of the tibia. The bone was carefully removed. The knee was brought out into full extension. Spacer block had excellent fit with the knee in full extension. There was good medial and lateral ligamentous balancing. Flexion and extension gaps were well balanced. The knee was flexed up. Lamina serger was placed both medially and laterally. Any remaining meniscus was carefully removed using electrocautery. Tibial tray and drop paola were placed and once again confirmed a satisfactory tibial cut. A size 5 narrow right femoral trial was impacted onto the distal femur and had excellent fit and stability. The box for the posterior stabilized implant was prepared using a reamer and box cut osteotome. Size 3 tibial tray trial with a 9-mm insert trial was placed and the knee was taken through range of motion. The knee had full extension to 130 degrees of flexion. There was satisfactory patellofemoral tracking. Patella was everted. A 7-mm of patellar bone and cartilage was carefully removed using an oscillating saw. Patella was sized to a size 32. Three peg holes were drilled through the size 32 guide. A 32 trial patella with 7.5 thickness was placed and the knee was taken through range of motion. There was satisfactory patellofemoral tracking. All trials were carefully removed. The tibia was subluxed anteriorly and sized to a size 3. Proximal tibia was prepared using a size 3 keel punch. All bony cut surfaces were copiously irrigated with sterile saline and dried. Final implants were cemented into place starting with the tibia, followed by the femur and last the patella. A 9-mm insert trial was placed and the knee was brought out into full extension. Tourniquet was turned down at 53 minutes. Electrocautery was used to obtain meticulous hemostasis. The wound was copiously irrigated with sterile saline. Once the cement had fully cured, the insert trial was removed. Any excess cement was removed from around the capsule and hardware. Final insert chosen was a 9-mm posterior stabilized articular insert size 3-4. This was locked into position on the tibial tray. The insert was stable and checked several times. The extensor mechanism was closed using interrupted #1 Vicryls. The rest of the incision was closed in a layered fashion using 0 and 2-0 Vicryls. Skin was closed using running 3-0 nylon suture. Sterile Xeroform, 4x4s, and Webril were used to cover the incision. Dariel wrap and cold pack were placed over this. The patient's anesthesia was reversed without difficulty. She was taken to the PACU in stable condition. Intended weightbearing will be weightbearing as tolerated. Intended DVT prophylaxis will be Coumadin with a Lovenox bridge. [id number]/[facility] #: [id number] DENNY
[2018-03-01] MEDS: oxyCODONE TAB* 5 MG TAB PO PRN ×2 (02:27→08:44)
[2018-03-01] MEDS: Morphine VIAL* 4 MG/ML VIAL (1 ml vial) IV PRN (02:53)
[2018-03-01] MEDS: Lactated Ringers 1000 ML Bag* 1,000 ML IV SCH (02:57)
[2018-03-01] MEDS: ceFAZolin 1 GM in Dextrose (*) 1 GM/50 ML BAG IVPB SCH ×2 (04:32→11:41)
[2018-03-01] MEDS: traMADol TAB* 50 MG PO PRN (04:34)
[2018-03-01 05:56] LABS: Hematocrit 35 % (35-47); Hemoglobin 11.5 g/dl (12.0-16.0); Mean Platelet Volume 8.7 fL (7.4-10.4); Platelet Count 232 10^3/ul (150-450)
[2018-03-01 06:04] LABS: INR 1.03 (0.77-1.02)
[2018-03-01] MEDS: Levothyroxine TAB* 137 MCG TAB PO SCH (06:06)
[2018-03-01 06:22] LABS: EGFR Non-African American 76.6 (>60)
[2018-03-01] MEDS: Acetaminophen TAB* 325 MG PO SCH ×3 (06:32→23:23)
[2018-03-01] MEDS: Tiotropium CAP.INH* CAP.INH/18 MCG (USE ORDER SET !) INH SCH (07:54)
[2018-03-01] MEDS: PTO:Fluticasone/Vilanterol MDI(NF) 200/25 MDI INH SCH ×2 (07:54→09:58)
[2018-03-01] MEDS: Magnesium Hydroxide LIQ* 30 ML UDC PO SCH ×2 (08:45→20:49)
[2018-03-01] MEDS: Docusate CAP* 100 MG PO SCH ×2 (08:46→20:49)
[2018-03-01] MEDS: DULoxetine DR CAP* 20 MG CAP.DR PO SCH ×2 (08:46→20:49)
[2018-03-01] MEDS: Famotidine TAB* 20 MG PO SCH ×2 (08:46→20:49)
[2018-03-01] MEDS: BuPROPion XL* 150 MG TAB.XL PO SCH (08:46)
[2018-03-01] MEDS ORDERED: Enoxaparin(*) 40 MG/0.4 ML SYR SUBCUT SCH (09:00)
[2018-03-01] MEDS ORDERED: Spiriva Inhaler DEVICE* 1 EACH DEVICE INH ONE (09:00)
--- NOTE | 2018-03-01 09:14 | PN ---
Subjective - Subjective Reason for Note: Progress Note History: This is a primary care patient of [employer]. She is 1 day post right TKA. She has had a severe exacerbation of right sided sciatica since the surgery - the pain is worse than her knee. She has a history of spinal stenosis. Asthma - not exacerbated Active Problems: Active Problems Acute right-sided back pain with sciatica (Acute) M54.41 Status post total right knee replacement (Acute) Z96.651 Asthma (Chronic) J45.909 Chronic hepatitis C (Chronic) Depression (Chronic) F32.9 Primary hypothyroidism (Chronic) E03.9 Spinal stenosis (Chronic) M48.00 Current Medications: Current Medications Acetaminophen (Tylenol Tab*) 975 mg PO Q8H [facility] Last Admin: 03/01/18 06:32 Dose: Not Given Albuterol (Ventolin Hfa Inhaler*) 1 puff INH BID PRN PRN Reason: SOB/WHEEZING Apixaban (Eliquis*) 2.5 mg PO BID JUAN C Bisacodyl (Dulcolax Supp*) 10 mg [place] DAILY PRN PRN Reason: constipation Bupropion HCl (Wellbutrin Xl *) 150 mg PO QAM [facility]; Protocol Last Admin: 03/01/18 08:46 Dose: 150 mg Cyclobenzaprine HCl (Flexeril Tab*) 10 mg PO TID PRN PRN Reason: SPASMS Last Admin: 02/28/18 20:20 Dose: 10 mg Diphenhydramine HCl (Benadryl Iv*) 12.5 mg IV Q6H PRN PRN Reason: PRURITIS Docusate Sodium (Colace Cap*) 100 mg PO BID [facility] Last Admin: 03/01/18 08:46 Dose: 100 mg Duloxetine HCl (Cymbalta Cap*) 20 mg PO BID [facility] Last Admin: 03/01/18 08:46 Dose: 20 mg Enoxaparin Sodium (Lovenox(*)) 40 mg SUBCUT Q24H [facility] Stop: 03/01/18 13:00 Last Admin: 03/01/18 08:46 Dose: 40 mg Famotidine (Pepcid Tab*) 20 mg PO BID [facility] Last Admin: 03/01/18 08:46 Dose: 20 mg Fluticasone/Vilanterol (Breo Ellipta Mdi 200/25(Nf)) 1 puff INH 1130 JUAN C Last Admin: 03/01/18 07:54 Dose: 1 puff Cefazolin Sodium/Dextrose (Kefzol 1 Gm In Dextrose Duplex (*)) 1 gm in 50 mls @ 200 mls/hr IVPB Q8H [facility] Stop: 03/01/18 12:14 Last Admin: 03/01/18 04:32 Dose: 200 mls/hr Lactated Ringer's (Lactated Ringers 1000 Ml Bag*) 1,000 mls @ 100 mls/hr IV PER RATE [facility] Last Admin: 03/01/18 02:57 Dose: 100 mls/hr Lactulose (Lactulose*) 30 ml PO Q6H PRN PRN Reason: constipation Levothyroxine Sodium (Synthroid Tab*) 137 mcg PO 0600 [facility] Last Admin: 03/01/18 06:06 Dose: 137 mcg Magnesium Hydroxide (Milk Of Magnesia Liq*) 30 ml PO BID [facility] Last Admin: 03/01/18 08:45 Dose: 30 ml Magnesium Hydroxide (Milk Of Magnesia Liq*) 30 ml PO Q6H PRN PRN Reason: constipation Morphine Sulfate (Morphine Vial*) 2 mg IV Q2H PRN PRN Reason: PAIN Last Admin: 03/01/18 02:53 Dose: 2 mg Ondansetron HCl (Zofran Inj*) 4 mg IV Q6H PRN PRN Reason: nausea Ondansetron HCl (Zofran Tab*) 4 mg PO Q6H PRN PRN Reason: NAUSEA Oxycodone HCl (Roxycodone Tab*) 10 mg PO Q4H PRN PRN Reason: SEVERE PAIN Last Admin: 03/01/18 08:44 Dose: 10 mg Oxycodone/Acetaminophen (Percocet 5/325 Tab*) 1 tab PO Q4H PRN PRN Reason: PAIN Oxycodone/Acetaminophen (Percocet 5/325 Tab*) 2 tab PO Q4H PRN PRN Reason: PAIN Last Admin: 03/01/18 04:35 Dose: 2 tab Polyethylene Glycol/Electrolytes (Miralax*) 17 gm PO DAILY PRN PRN Reason: Constipation Tiotropium [place] (Spiriva Cap.Inh*) 1 cap INH QAM [facility] Last Admin: 03/01/18 07:54 Dose: 1 cap Tramadol HCl (Ultram*) 50 mg PO Q6H PRN PRN Reason: PAIN Last Admin: 03/01/18 04:34 Dose: 50 mg Home Medications: Home Medications Medication Instructions Recorded Confirmed Type Albuterol HFA INHALER* [Proair HFA 1 puff INH BID PRN 02/24/12 02/28/18 History Inhaler*] Naproxen TAB* [Naprosyn TAB*] 375 mg PO BID 02/24/12 02/28/18 History Nystatin TOP POWDER* 1 applic .SEE ORDER DAILY PRN 02/24/12 02/15/18 History Zolpidem TAB* [Ambien*] 10 mg PO BEDTIME 02/24/12 02/28/[address] CAP* [Cymbalta CAP*] 20 mg PO BID 01/10/13 02/28/18 History raNITIdine HCl [Ranitidine 75] 150 mg PO BID 11/29/13 02/28/18 History Cyanocobalamin INJ * [Vitamin B12 1,000 mcg PO MONTHLY 07/14/16 02/28/18 History INJ *] Desloratidine (NF) [Clarinex (NF)] 5 mg PO QAM 07/14/16 02/28/18 History Bupropion XL* [Wellbutrin XL *] 150 mg PO QAM 10/22/16 02/28/18 History Hydrocodone/Acetaminophen [[place] 1 tab PO DAILY PRN 10/26/16 02/28/18 History 5-325 Tablet] Fluticasone/Vilanterol [Breo 1 puff INH 1130 02/07/18 02/28/18 History Ellipta 200-25 Mcg INH] Tiotropium CAP.INH* [Spiriva 2 cap.inh INH QAM 02/07/18 02/28/18 History CAP.INH*] Acetaminophen [Acetaminophen Extra 500 mg PO BID 02/15/18 02/28/18 History Strength] Flonase Allergy Relief 1 spray BOTH NARES QPM 02/28/18 02/28/18 History Levothyroxine TAB* 137 mcg PO QAM 02/28/18 02/28/18 History Magnesium 400 mg PO BID 02/28/18 02/28/18 History Allergies: Allergies Allergy/AdvReac Type Severity Reaction Status Date / Time Adhesive Tape AdvReac Severe See Comment Verified 02/28/18 09:05 Chemicals AdvReac Severe See Comment Uncoded 02/28/18 09:05 Objective - Vital Signs Vital Signs: Vital Signs 02/28/18 02/28/18 02/28/18 14:03 14:04 14:05 Temperature 97.9 F Pulse Rate 78 77 80 Respiratory 21 16 Rate Blood Pressure 166/86 154/82 (mmHg) O2 Sat by Pulse 95 96 96 Oximetry 02/28/18 02/28/18 02/28/18 14:10 14:12 14:15 Temperature Pulse Rate 72 72 Respiratory 17 16 16 Rate Blood Pressure 151/90 171/83 (mmHg) O2 Sat by Pulse 94 94 Oximetry 02/28/18 02/28/18 02/28/18 14:20 14:30 14:31 Temperature Pulse Rate 75 72 Respiratory 23 19 16 Rate Blood Pressure 143/81 163/85 (mmHg) O2 Sat by Pulse 94 97 Oximetry 02/28/18 02/28/18 02/28/18 14:45 14:54 15:00 Temperature Pulse Rate 70 74 Respiratory 12 16 25 Rate Blood Pressure 161/77 (mmHg) O2 Sat by Pulse 97 98 Oximetry 02/28/18 02/28/18 02/28/18 15:01 15:15 15:33 Temperature Pulse Rate 74 70 Respiratory 19 19 16 Rate Blood Pressure 160/70 148/85 (mmHg) O2 Sat by Pulse 97 99 Oximetry 02/28/18 02/28/18 02/28/18 15:39 15:43 15:45 Temperature Pulse Rate 69 69 Respiratory 16 16 19 Rate Blood Pressure 149/69 138/71 (mmHg) O2 Sat by Pulse 98 98 Oximetry 02/28/18 02/28/18 02/28/18 15:53 15:55 16:00 Temperature Pulse Rate 72 Respiratory 16 16 28 Rate Blood Pressure 150/72 (mmHg) O2 Sat by Pulse 96 Oximetry 02/28/18 02/28/18 02/28/18 16:35 16:36 16:40 Temperature 98.3 F 98.3 F Pulse Rate 71 71 Respiratory 18 18 18 Rate Blood Pressure 134/63 134/63 (mmHg) O2 Sat by Pulse 99 99 Oximetry 02/28/18 02/28/18 02/28/18 17:31 17:39 20:00 Temperature 97.5 F Pulse Rate 73 Respiratory 18 18 16 Rate Blood Pressure 112/54 (mmHg) O2 Sat by Pulse 97 Oximetry 02/28/18 02/28/18 02/28/18 20:06 20:20 20:22 Temperature Pulse Rate Respiratory 16 16 16 Rate Blood Pressure (mmHg) O2 Sat by Pulse Oximetry 02/28/18 02/28/18 02/28/18 21:12 21:52 21:53 Temperature 97.8 F Pulse Rate 77 Respiratory 18 16 16 Rate Blood Pressure 141/101 (mmHg) O2 Sat by Pulse 93 Oximetry 02/28/18 02/28/18 03/01/18 22:33 23:51 00:00 Temperature 98.1 F Pulse Rate 73 Respiratory 16 16 Rate Blood Pressure 119/55 (mmHg) O2 Sat by Pulse 94 98 Oximetry 03/01/18 03/01/18 03/01/18 00:18 00:21 00:29 Temperature 97.7 F Pulse Rate 74 Respiratory 14 17 Rate Blood Pressure 135/54 (mmHg) O2 Sat by Pulse 95 98 Oximetry 03/01/18 03/01/18 03/01/18 02:27 02:41 02:53 Temperature Pulse Rate Respiratory 16 16 14 Rate Blood Pressure (mmHg) O2 Sat by Pulse Oximetry 03/01/18 03/01/18 03/01/18 04:27 04:34 04:35 Temperature 98.2 F Pulse Rate 85 Respiratory 18 16 16 Rate Blood Pressure 153/69 (mmHg) O2 Sat by Pulse 98 Oximetry 03/01/18 03/01/18 03/01/18 06:16 07:21 08:00 Temperature 98.1 F Pulse Rate 83 Respiratory 14 16 16 Rate Blood Pressure 121/50 (mmHg) O2 Sat by Pulse 94 Oximetry 03/01/18 08:44 Temperature Pulse Rate Respiratory 16 Rate Blood Pressure (mmHg) O2 Sat by Pulse Oximetry - Intake and Output Intake and Output: Intake & Output 02/26/18 02/27/18 02/28/18 03/01/18 11:59 11:59 11:59 11:59 Intake Total 50 5315 Output Total 1900 Balance 50 3415 Weight 232 lb Intake: IV Fluids 50 3445 ABX - CEFAZOLIN 55 LR 990 Lr 2400 NS 50ML, Cefazolin 2G 50 Oral 1870 Output: Urine 550 Villatoro 1150 Estimated Blood Loss 200 ADLs: Meal Record Start: 02/28/18 16: 33 Freq: Status: Active Protocol: Created 02/28/18 16:33 [id number] (Rec: 02/28/18 16:33 [id number] [facility]-M13) Document 03/01/18 09:01 [id number] (Rec: 03/01/18 09:01 [id number] [facility]-C01) Intake and Output Start: 02/28/18 14: 04 Freq: 06,14,2200 Status: Active Protocol: Created 02/28/18 14:14 [id number] (Rec: 02/28/18 14:14 BKG [id number]) Intake and Output Start: 02/28/18 16: 33 Freq: DAILY@0600,1400,2200 Status: Active Protocol: Created 02/28/18 16:33 [id number] (Rec: 02/28/18 16:33 [id number] [facility]-M13) Document 02/28/18 22:15 [id number] (Rec: 02/28/18 22:16 [id number] [facility]-C03) Document 03/01/18 05:14 [id number] (Rec: 03/01/18 05:22 [id number] [facility]-L02) Document 03/01/18 06:17 [id number] (Rec: 03/01/18 06:17 [id number] [facility]-M07) Document 03/01/18 09:00 [id number] (Rec: 03/01/18 09:03 [id number] [facility]-C01) - Physical Exam General Physical Exam Comment: she is in pain from right sciatica General: No Cyanosis, No Anemia, No Jaundice, No Clubbing Lungs and Chest: Yes: Chest Expansion Full, Chest Expansion Symetrica, Percussion Note Resonant, Vessicular Breath Sounds. No: Crackles, Wheezes Heart Rate and Rhythm: Regular Additional Cardiovascular: Yes: Normal Heart Sounds. No: Heart Murmur, Pedal Edema Abdominal Exam: Yes: Soft, Bowel Sounds Present. No: Distention, Hepatomegaly, Abdominal Tenderness Results - Results Lab Results: Laboratory Results - last 24 hr 02/28/18 02/28/18 03/01/18 10:00 11:23 05:42 Hgb 11.5 L Hct 35 Plt Count 232 MPV 8.7 INR (Anticoag Therapy) Sodium Potassium Chloride Carbon Dioxide Anion Gap BUN Creatinine Est GFR ( Amer) Est GFR (Non-Af Amer) BUN/Creatinine Ratio Glucose POC Glucose (mg/dL) 105 H 92 Calcium 03/01/18 03/01/18 05:42 05:42 Hgb Hct Plt Count MPV INR (Anticoag Therapy) 1.03 H Sodium 133 L Potassium 3.9 Chloride 100 L Carbon Dioxide 29 Anion Gap 4 BUN 9 Creatinine 0.75 Est GFR ( Amer) 92.7 Est GFR (Non-Af Amer) 76.6 BUN/Creatinine Ratio 12.0 Glucose 117 H POC Glucose (mg/dL) Calcium 8.5 L Assessment - Problem List Assessment: Patient Problems Acute right-sided back pain with sciatica (Acute) Status post total right knee replacement (Acute) Asthma (Chronic) Chronic hepatitis C (Chronic) Depression (Chronic) Primary hypothyroidism (Chronic) Spinal stenosis (Chronic) Plan: Acute right-sided back pain with sciatica (Acute) Spinal stenosis (Chronic) I will check a Lumbar X-ray in case she sustained an injury. I think this comorbidity makes acute rehabilitation in [facility] necessary and desirable Status post total right knee replacement (Acute) This is going well Asthma (Chronic) Not exacerbated Chronic hepatitis C (Chronic) secondary diagnosis Depression (Chronic) secondary diagnosis Primary hypothyroidism (Chronic) secondary diagnosis I discussed the above with the patient and she agrees with the management plan
--- NOTE | 2018-03-01 09:19 | PN ---
Progress Note - Progress Note Date of Service: 03/01/18 SOAP: Subjective: []Patient was seen and examined at bedside. Her right knee pain is rated 7/10 but tolerable, she is more bothered by reported sciatica described as stabbing right buttock pain. She has experienced this before and utilizes an OTC muscle rub as well as massage for relief. Denies CP, SOB, dizziness, nausea. No history of blood clot. Objective: []General: Well appearing, NAD RLE: Right knee dressing CDI, thigh is soft, DF/PF intact, DP2+, sensation intact to light touch distally. Right buttock without erythema, skin breakdown or point tenderness. Calves supple and nontender without erythema, edema or palpable cords Assessment: []POD 1 sp right total knee arthroplasty, Dr Andrade Plan: []WBAT PT/OT Okay to use OTC muscle rub on glute, keep out of proximity of incision lovenox bridge to coumadin, coumadin 8 mg today Continue to use IS PMRU referral placed hyponatremia: Stop IV fluids, repeat Na tomorrow Vital Signs Temp 98.1 F 03/01/18 07:21 Pulse 83 03/01/18 07:21 Resp 16 03/01/18 08:44 BP 121/50 03/01/18 07:21 Pulse Ox 94 03/01/18 07:21 Intake & Output 02/28/18 03/01/18 03/01/18 18:59 06:59 18:59 Intake Total 2450 2495 420 Output Total 600 750 550 Balance 1850 1745 -130 Weight 232 lb Intake: IV Fluids 2450 1045 ABX - CEFAZOLIN 55 LR 990 Lr 2400 NS 50ML, Cefazolin 2G 50 Oral 1450 420 Output: Urine 550 Villatoro 400 750 Estimated Blood Loss 200 Laboratory Last Values Hgb 11.5 g/dl (12.0-16.0) L 03/01/18 05:42 Hct 35 % (35-47) 03/01/18 05:42 Plt Count 232 10^3/ul (150-450) 03/01/18 05:42 MPV 8.7 fL (7.4-10.4) 03/01/18 05:42 INR (Anticoag Therapy) 1.03 (0.77-1.02) H 03/01/18 05:42 Sodium 133 mmol/L (135-145) L 03/01/18 05:42 Potassium 3.9 mmol/L (3.5-5.0) 03/01/18 05:42 Chloride 100 mmol/L (101-111) L 03/01/18 05:42 Carbon Dioxide 29 mmol/L (22-32) 03/01/18 05:42 Anion Gap 4 mmol/L (2-11) 03/01/18 05:42 BUN 9 mg/dL (6-24) 03/01/18 05:42 Creatinine 0.75 mg/dL (0.51-0.95) 03/01/18 05:42 Est GFR ( Amer) 92.7 (>60) 03/01/18 05:42 Est GFR (Non-Af Amer) 76.6 (>60) 03/01/18 05:42 BUN/Creatinine Ratio 12.0 (8-20) 03/01/18 05:42 Glucose 117 mg/dL (70-100) H 03/01/18 05:42 POC Glucose (mg/dL) 92 mg/dL (70-100) 02/28/18 11:23 Calcium 8.5 mg/dL (8.6-10.3) L 03/01/18 05:42
[2018-03-01] MEDS ORDERED: Zolpidem TAB* 10 MG PO PRN (10:54)
[2018-03-01] MEDS ORDERED: Warfarin TAB(*) 4 MG PO ONE (17:00)
[2018-03-01] MEDS: Apixaban* 2.5 MG TAB PO SCH (20:49)
[2018-03-02] MEDS: oxyCODONE/Acetamin 5/325 MG* TAB PO PRN ×2 (05:35→12:49)
[2018-03-02] MEDS: Levothyroxine TAB* 137 MCG TAB PO SCH (05:35)
[2018-03-02 05:47] LABS: Hematocrit 34 % (35-47); Hemoglobin 11.4 g/dl (12.0-16.0); Mean Platelet Volume 9.3 fL (7.4-10.4); Platelet Count 234 10^3/ul (150-450)
[2018-03-02] MEDS: Acetaminophen TAB* 325 MG PO SCH (07:04)
[2018-03-02 07:38] LABS: INR 1.17 (0.77-1.02)
--- NOTE | 2018-03-02 07:39 | PN ---
Progress Note - Progress Note Date of Service: 03/02/18 SOAP: Subjective: Pt. is alert, pain is controlled. Objective: Vital Signs: Temp Pulse Resp BP Pulse Ox 99.4 F 79 16 130/44 91 03/02/18 04:29 03/02/18 04:29 03/02/18 07:32 03/02/18 04:29 03/02/18 04:29 Laboratory Results - last 24 hr 03/02/18 03/02/18 05:19 05:21 Hgb 11.4 L Hct 34 L Plt Count 234 MPV 9.3 Sodium 134 L RLE - dressing changed, inc c/d/i - hematoma evident. distally nvi. Assessment: 67 yo pod 2 s/p RTKA Plan: wbat rle pt/ot home with vns
--- NOTE | 2018-03-02 08:55 | PN ---
Subjective - Subjective Reason for Note: Progress Note History: She had a massage yesterday and she states her sciatica is much improved - though remains present on transferring. She is doing well otherwise from a medical point of view. She slept better. Active Problems: Active Problems Acute right-sided back pain with sciatica (Acute) M54.41 Status post total right knee replacement (Acute) Z96.651 Asthma (Chronic) J45.909 Chronic hepatitis C (Chronic) Depression (Chronic) F32.9 Primary hypothyroidism (Chronic) E03.9 Spinal stenosis (Chronic) M48.00 Current Medications: Current Medications Acetaminophen (Tylenol Tab*) 975 mg PO Q8H [facility] Last Admin: 03/02/18 07:04 Dose: Not Given Albuterol (Ventolin Hfa Inhaler*) 1 puff INH BID PRN PRN Reason: SOB/WHEEZING Apixaban (Eliquis*) 2.5 mg PO BID [facility] Last Admin: 03/01/18 20:49 Dose: 2.5 mg Bisacodyl (Dulcolax Supp*) 10 mg [place] DAILY PRN PRN Reason: constipation Bupropion HCl (Wellbutrin Xl *) 150 mg PO QAM [facility]; Protocol Last Admin: 03/01/18 08:46 Dose: 150 mg Cyclobenzaprine HCl (Flexeril Tab*) 10 mg PO TID PRN PRN Reason: SPASMS Last Admin: 02/28/18 20:20 Dose: 10 mg Diphenhydramine HCl (Benadryl Iv*) 12.5 mg IV Q6H PRN PRN Reason: PRURITIS Docusate Sodium (Colace Cap*) 100 mg PO BID [facility] Last Admin: 03/01/18 20:49 Dose: 100 mg Duloxetine HCl (Cymbalta Cap*) 20 mg PO BID [facility] Last Admin: 03/01/18 20:49 Dose: 20 mg Famotidine (Pepcid Tab*) 20 mg PO BID [facility] Last Admin: 03/01/18 20:49 Dose: 20 mg Fluticasone/Vilanterol (Breo Ellipta Mdi 200/25(Nf)) 1 puff INH 1130 JUAN C Last Admin: 03/01/18 09:58 Dose: Not Given Lactulose (Lactulose*) 30 ml PO Q6H PRN PRN Reason: constipation Levothyroxine Sodium (Synthroid Tab*) 137 mcg PO 0600 [facility] Last Admin: 03/02/18 05:35 Dose: 137 mcg Magnesium Hydroxide (Milk Of Magnesia Liq*) 30 ml PO BID [facility] Last Admin: 03/01/18 20:49 Dose: 30 ml Magnesium Hydroxide (Milk Of Magnesia Liq*) 30 ml PO Q6H PRN PRN Reason: constipation Morphine Sulfate (Morphine Vial*) 2 mg IV Q2H PRN PRN Reason: PAIN Last Admin: 03/01/18 02:53 Dose: 2 mg Ondansetron HCl (Zofran Inj*) 4 mg IV Q6H PRN PRN Reason: nausea Ondansetron HCl (Zofran Tab*) 4 mg PO Q6H PRN PRN Reason: NAUSEA Oxycodone HCl (Roxycodone Tab*) 10 mg PO Q4H PRN PRN Reason: SEVERE PAIN Last Admin: 03/01/18 08:44 Dose: 10 mg Oxycodone/Acetaminophen (Percocet 5/325 Tab*) 1 tab PO Q4H PRN PRN Reason: PAIN Oxycodone/Acetaminophen (Percocet 5/325 Tab*) 2 tab PO Q4H PRN PRN Reason: PAIN Last Admin: 03/02/18 05:35 Dose: 2 tab Polyethylene Glycol/Electrolytes (Miralax*) 17 gm PO DAILY PRN PRN Reason: Constipation Tiotropium [place] (Spiriva Cap.Inh*) 1 cap INH QAM JUAN C Last Admin: 03/01/18 07:54 Dose: 1 cap Tramadol HCl (Ultram*) 50 mg PO Q6H PRN PRN Reason: PAIN Last Admin: 03/01/18 04:34 Dose: 50 mg Zolpidem Tartrate (Ambien Tab*) 10 mg PO BEDTIME PRN PRN Reason: INSOMNIA Last Admin: 03/01/18 23:20 Dose: 10 mg Home Medications: Home Medications Medication Instructions Recorded Confirmed Type Albuterol HFA INHALER* [Proair HFA 1 puff INH BID PRN 02/24/12 02/28/18 History Inhaler*] Naproxen TAB* [Naprosyn TAB*] 375 mg PO BID 02/24/12 02/28/18 History Nystatin TOP POWDER* 1 applic .SEE ORDER DAILY PRN 02/24/12 02/15/18 History Zolpidem TAB* [Ambien*] 10 mg PO BEDTIME 02/24/12 02/28/[address] CAP* [Cymbalta CAP*] 20 mg PO BID 01/10/13 02/28/18 History raNITIdine HCl [Ranitidine 75] 150 mg PO BID 11/29/13 02/28/18 History Cyanocobalamin INJ * [Vitamin B12 1,000 mcg PO MONTHLY 07/14/16 02/28/18 History INJ *] Desloratidine (NF) [Clarinex (NF)] 5 mg PO QAM 07/14/16 02/28/18 History Bupropion XL* [Wellbutrin XL *] 150 mg PO QAM 10/22/16 02/28/18 History Hydrocodone/Acetaminophen [[place] 1 tab PO DAILY PRN 10/26/16 02/28/18 History 5-325 Tablet] Fluticasone/Vilanterol [Breo 1 puff INH 1130 02/07/18 02/28/18 History Ellipta 200-25 Mcg INH] Tiotropium CAP.INH* [Spiriva 2 cap.inh INH QAM 02/07/18 02/28/18 History CAP.INH*] Acetaminophen [Acetaminophen Extra 500 mg PO BID 02/15/18 02/28/18 History Strength] Flonase Allergy Relief 1 spray BOTH NARES QPM 02/28/18 02/28/18 History Levothyroxine TAB* 137 mcg PO QAM 02/28/18 02/28/18 History Magnesium 400 mg PO BID 02/28/18 02/28/18 History Allergies: Allergies Allergy/AdvReac Type Severity Reaction Status Date / Time Adhesive Tape AdvReac Severe See Comment Verified 02/28/18 09:05 Chemicals AdvReac Severe See Comment Uncoded 02/28/18 09:05 Objective - Vital Signs Vital Signs: Vital Signs 03/01/18 03/01/18 03/01/18 11:24 11:40 11:41 Temperature 99.5 F Pulse Rate 79 Respiratory 16 18 18 Rate Blood Pressure 122/54 (mmHg) O2 Sat by Pulse 98 Oximetry 03/01/18 03/01/18 03/01/18 14:31 15:25 16:00 Temperature 98.5 F Pulse Rate 77 Respiratory 16 16 Rate Blood Pressure 132/55 (mmHg) O2 Sat by Pulse 96 96 Oximetry 03/01/18 03/01/18 03/01/18 16:13 18:08 20:00 Temperature Pulse Rate Respiratory 18 18 18 Rate Blood Pressure (mmHg) O2 Sat by Pulse Oximetry 03/01/18 03/01/18 03/01/18 20:49 21:00 21:15 Temperature 98.5 F Pulse Rate 76 Respiratory 18 18 16 Rate Blood Pressure 138/57 (mmHg) O2 Sat by Pulse 95 Oximetry 03/01/18 03/01/18 03/02/18 23:23 23:39 00:50 Temperature 99.9 F Pulse Rate 85 Respiratory 18 21 16 Rate Blood Pressure 157/60 (mmHg) O2 Sat by Pulse 95 Oximetry 03/02/18 03/02/18 03/02/18 01:13 04:29 05:35 Temperature 99.2 F 99.4 F Pulse Rate 79 Respiratory 16 18 Rate Blood Pressure 130/44 (mmHg) O2 Sat by Pulse 91 Oximetry 03/02/18 03/02/18 03/02/18 07:32 07:38 08:00 Temperature 98.5 F Pulse Rate 81 Respiratory 16 16 16 Rate Blood Pressure 134/55 (mmHg) O2 Sat by Pulse 93 Oximetry - Intake and Output Intake and Output: Intake & Output 02/27/18 02/28/18 03/01/18 03/02/18 11:59 11:59 11:59 11:59 Intake Total 50 5315 1969 Output Total 1900 3000 Balance 50 3415 -1031 Weight 232 lb Intake: IV Fluids 50 3445 959 ABX - CEFAZOLIN 55 105 LR 990 854 Lr 2400 NS 50ML, Cefazolin 2G 50 Oral 1870 1010 Output: Urine 550 3000 Villatoro 1150 Estimated Blood Loss 200 Other: Date of Last Bowel 03/02/2018 Movement # Bowel Movements 1 Estimated Stool Amount Large ADLs: Meal Record Start: 02/28/18 16: 33 Freq: Status: Active Protocol: Created 02/28/18 16:33 [id number] (Rec: 02/28/18 16:33 [id number] [facility]-M13) Document 03/01/18 09:01 [id number] (Rec: 03/01/18 09:01 [id number] [facility]-C01) Document 03/01/18 12:40 [id number] (Rec: 03/01/18 12:40 [id number] [facility]-M16) Intake and Output Start: 02/28/18 14: 04 Freq: 06,14,2200 Status: Active Protocol: Created 02/28/18 14:14 [id number] (Rec: 02/28/18 14:14 BKG [id number]) Intake and Output Start: 02/28/18 16: 33 Freq: DAILY@0600,1400,2200 Status: Active Protocol: Created 02/28/18 16:33 [id number] (Rec: 02/28/18 16:33 [id number] [facility]-M13) Document 02/28/18 22:15 [id number] (Rec: 02/28/18 22:16 [id number] [facility]-C03) Document 03/01/18 05:14 [id number] (Rec: 03/01/18 05:22 [id number] [facility]-L02) Document 03/01/18 06:17 [id number] (Rec: 03/01/18 06:17 [id number] [facility]-M07) Document 03/01/18 09:00 [id number] (Rec: 03/01/18 09:03 [id number] [facility]-C01) Document 03/01/18 16:33 [id number] (Rec: 03/01/18 16:33 [id number] [facility]-L02) Document 03/01/18 22:05 [id number] (Rec: 03/01/18 22:09 [id number] [facility]-C11) Document 03/02/18 03:30 [id number] (Rec: 03/02/18 04:30 [id number] [facility]-M17) Document 03/02/18 05:32 [id number] (Rec: 03/02/18 05:32 [id number] [facility]-M06) Document 03/02/18 06:00 [id number] (Rec: 03/02/18 06:01 [id number] [facility]-M17) Results - Results Lab Results: Laboratory Results - last 24 hr 03/02/18 03/02/18 03/02/18 05:19 05:21 06:20 Hgb 11.4 L Hct 34 L Plt Count 234 MPV 9.3 INR (Anticoag Therapy) 1.17 H Sodium 134 L Assessment - Problem List Assessment: Patient Problems Acute right-sided back pain with sciatica (Acute) Status post total right knee replacement (Acute) Asthma (Chronic) Chronic hepatitis C (Chronic) Depression (Chronic) Primary hypothyroidism (Chronic) Spinal stenosis (Chronic) Plan: Her sciatica is improved today - but limits her on transfers. She is stable from a medical point of view. She has a sodium of 134, but this is not concerning. She will be evaluated today again by OT/PT to determine if she should go home or to [facility].
[2018-03-02] MEDS: oxyCODONE TAB* 5 MG TAB PO PRN (09:08)
[2018-03-02] MEDS: Apixaban* 2.5 MG TAB PO SCH (09:09)
[2018-03-02] MEDS: DULoxetine DR CAP* 20 MG CAP.DR PO SCH (09:09)
[2018-03-02] MEDS: Famotidine TAB* 20 MG PO SCH (09:09)
[2018-03-02] MEDS: BuPROPion XL* 150 MG TAB.XL PO SCH (09:09)
[2018-03-02] MEDS: Tiotropium CAP.INH* CAP.INH/18 MCG (USE ORDER SET !) INH SCH (09:09)
[2018-03-02] MEDS: Docusate CAP* 100 MG PO SCH (09:09)
[2018-03-02] MEDS: Magnesium Hydroxide LIQ* 30 ML UDC PO SCH (09:10)
[2018-03-02] MEDS: PTO:Fluticasone/Vilanterol MDI(NF) 200/25 MDI INH SCH ×2 (09:11→09:53)
[2018-03-02 11:29] VITALS: BP 140/61
== END 2018-03-02 13:13 | disposition home health service (06) | DRG 470 ==
LOC: AA 08:16 → SSU 16:50
PROVIDERS: ADMIT Orthopaedic Surgery Adult Reconstructive Orthopaedic Surgery; ATTEND Orthopaedic Surgery Adult Reconstructive Orthopaedic Surgery
PROC: 0SRC0J9 Replacement of Right Knee Joint with Synthetic Substitute, Cemented, Open Approach (ICD-10-PCS; principal; 2018-02-28 11:00)
DX: M17.11 Unilateral primary osteoarthritis, right knee (principal); Z68.41 Body mass index [BMI] 40.0-44.9, adult; E87.1 Hypo-osmolality and hyponatremia; K21.9 Gastro-esophageal reflux disease without esophagitis; J45.909 Unspecified asthma, uncomplicated; E78.00 Pure hypercholesterolemia, unspecified; F32.9 Major depressive disorder, single episode, unspecified; F41.9 Anxiety disorder, unspecified; G47.30 Sleep apnea, unspecified; Z96.652 Presence of left artificial knee joint; M25.461 Effusion, right knee; M48.00 Spinal stenosis, site unspecified; B18.2 Chronic viral hepatitis C; M54.31 Sciatica, right side; E66.9 Obesity, unspecified; F34.1 Dysthymic disorder; K44.9 Diaphragmatic hernia without obstruction or gangrene; M25.761 Osteophyte, right knee; E89.0 Postprocedural hypothyroidism; Z90.49 Acquired absence of other specified parts of digestive tract; Z88.8 Allergy status to other drugs, medicaments and biological substances; Z72.89 Other problems related to lifestyle; Z82.49 Family history of ischemic heart disease and other diseases of the circulatory system; Z82.5 Family history of asthma and other chronic lower respiratory diseases; Z82.3 Family history of stroke; Z87.891 Personal history of nicotine dependence
CPT/HCPCS: 36415; 80048; 84300; 85014; 85018; 85049; 85610; 88305; 88311; 94640; A9270-GY; C1776; G8978-GP-CJ; G8979-GP-CI; G8987-GO-CJ; G8988-GO-CI; J0690; J1170; J1650; J2250; J2270; J2405; J2704; J2795; J3010